=== PATIENT | male | born 1950 | race Caucasian/White ===

== ENCOUNTER 2022-04-11 04:28 | Day surgery (SDC) | payer OTHER, BC ==
[2022-04-10 10:19] VITALS: BMI 26.2
[2022-04-11 12:15] VITALS: BP 145/78; PULSE 66; RESP 21
[2022-04-11 12:20] VITALS: TEMP 98
== END 2022-04-11 12:55 | disposition home or self-care (01) ==
LOC: JASU-ENDO 04:28
PROVIDERS: ATTEND Internal Medicine Gastroenterology
PROC: 0DJD8ZZ Inspection of Lower Intestinal Tract, Via Natural or Artificial Opening Endoscopic (ICD-10-PCS; principal; 2022-04-11 10:00)
DX: Z51.11 Encounter for antineoplastic chemotherapy (principal); Z85.038 Personal history of other malignant neoplasm of large intestine; K57.30 Diverticulosis of large intestine without perforation or abscess without bleeding

== ENCOUNTER 2022-06-19 10:34 | Emergency (ER) | payer OTHER, BC ==
[2022-06-19 10:50] VITALS: BP 192/102; PULSE 98; RESP 18; TEMP 97.9; BMI 26.4
== END 2022-06-19 12:15 | disposition home or self-care (01) ==
LOC: JER 10:34
DX: S91.302A Unspecified open wound, left foot, initial encounter (principal); Y99.8 Other external cause status
CPT/HCPCS: 99282-25